=== PATIENT | female | born 1965 | race Caucasian/White ===

== ENCOUNTER 2018-04-19 10:28 | Observation (INO) | payer OTHER ==
--- OUTSIDE RECORDS SUMMARY | 2018-04-19 11:05 | XMS REPORT | Clinical Summary ---
:1965 Author Organization [facility] Address [address] [place] [address] Care Team Providers Name Role Phone Asked, No Pcp Primary Care Provider Unavailable Allergies Active Allergy Reactions Severity Noted Date Comments Latex Rash Low 02/04/2016 Current Medications Prescription Sig. Disp. Refills Start Date End Date Status esomeprazole (NexIUM) 40 Take 40 mg by Active MG capsule mouth. eszopiclone (LUNESTA) 3 mg Take by mouth. Active tablet montelukast (SINGULAIR) 10 01/24/2016 Active mg tablet mometasone (NASONEX) 50 11/27/2015 Active mcg/actuation nasal spray HEMATINIC PLUS 01/23/2016 Active VIT/MINERALS 106 mg iron- 1 mg tablet fluticasone (FLONASE) 50 01/24/2016 Active mcg/actuation nasal spray Active Problems Problem Noted Date Malignant neoplasm of vulva (HCC) 07/08/2013 Social History Tobacco Use Types Packs/Day Years Used Date Never Smoker Alcohol Use Drinks/Week oz/Week Comments No Sex Assigned at Date Recorded Not on file Last Filed Vital Signs Not on file Plan of Treatment Health Maintenance Due Date Last Done Comments CERVICAL CANCER SCREENING 1986 COLON CANCER SCREENING 11/15/2015 SHINGRIX VACCINE (#1) 11/15/2015 INFLUENZA VACCINE 02/03/2018 BREAST CANCER SCREENING 02/04/2018 02/05/2016 Results Not on fileafter 04/18/2017 Insurance Payer Benefit Plan / Group Subscriber ID Type Phone Address AETNA A[employer]NA HMO,POS,EPO, MC/EC xxxxxxxxxx HMO
[2018-04-19] MEDS ORDERED: ACETAMINOPHEN 500 MG TAB PO PRN (13:20)
[2018-04-19] MEDS ORDERED: ONDANSETRON 4 MG/2 ML VIAL IV PRN (13:20)
[2018-04-19] MEDS ORDERED: ACETAMINOPHEN 325 MG TABLET PRN (14:00)
--- NOTE | 2018-04-19 14:13 | RAD REPORT ---
EXAM DESCRIPTION: CT - Thorax W/ Con CLINICAL HISTORY: Chest pain nodule 3mm in chest - for evaluation COMPARISON: No comparisons FINDINGS: A well-circumscribed 5 mm nodule is seen in a juxtapleural location in the right lower lob e posteriorly (image 34/70). A punctate area of lucency seen within the nodule. Elsewhere, no suspici ous pulmonary nodule or mass is identified. No pleural thickening or pleural effusion. No pneumothora x. No axillary, mediastinal or hilar adenopathy. No concerning bony finding. No gross upper abdominal finding. All CT scans are performed using dose optimization technique as appropriate and may include automated exposure control or mA/KV adjustment according to patient size. IMPRESSION: Circumscribed 5 mm nodule is seen juxtapleural location right lower lobe posteriorly. Th is is likely a benign lesion, however follow-up CT chest is recommended in 6 months.
--- NOTE | 2018-04-19 15:08 | P.HP ---
Certification for Inpatient Patient admitted to: Observation With expected LOS: <2 Midnights Patient will require the following post-hospital care: None Practitioner: I am a practitioner with admitting privileges, knowledge of patient current condition, hospital course, and medical plan of care. 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 Patient stated that this morning when she was sitting on her makeup she started noticing that she was having cramping pain on her chest on the left-hand side. He was radiating down her arm and to the back. Patient also had associated nausea and shortness of breath with it. Patient decided to wait it out and see if her pain would subside however since the pain did not subside thus he decided to come to the ER for further workup. Patient has never had similar episodes in the past. After talking to patient's primary care doctor patient does have underlying anxiety and does generally appeared to be more anxious than usual. Currently patient is stating that she does not have any anxiety however his having a lot of work at school due to home coming. Patient denies having any fever chills and abdominal pain diarrhea constipation at this time In the ER patient had troponin x1 -. EKG was not negative for any abnormalty. Patient was admitted for ACS rule out at this time Allergies No Known Allergies Allergy (Verified 04/19/18 11:56) Home Medications: Esomeprazole Magnesium 1 tab PO DAILY 04/19/18 Eszopiclone 1.5 mg PO DAILY 04/19/18 Montelukast [Singulair*] 1 tab PO DAILY 04/19/18 - Past Medical/Surgical History Has patient received pneumonia vaccine in the past: No Diabetic: No -: sinusitis -: Shortness of breath -: salivary glands cancer -: salivary glands cancer removal in 2011 - Family History Sister -: Heart disease, Other (see notes) Notes: Rapid Heart rate Mother -: Hypertension Father -: Hypertension - Social History Smoking Status: Never smoker Alcohol use: Yes CD- Drugs: No Caffeine use: Yes Place of Residence: Home Review of Systems 10-point ROS is otherwise unremarkable Physical Examination - Physical Exam General: Alert, In no apparent distress HEENT: Atraumatic, PERRLA, Mucous membr. moist/pink, EOMI, Sclerae nonicteric Neck: Supple, 2+ carotid pulse no bruit, No LAD, Without JVD or thyroid abnormality Respiratory: Clear to auscultation bilaterally, Normal air movement Cardiovascular: Regular rate/rhythm, Normal S1 S2 Gastrointestinal: Normal bowel sounds, No tenderness Musculoskeletal: No tenderness Integumentary: No rashes Neurological: Normal gait, Normal speech, Normal strength at 5/5 x4 extr, Normal tone, Normal affect Lymphatics: No axilla or inguinal lymphadenopathy Assessment and Plan - Problems (Diagnosis) (1) Chest pain Current Visit: Yes Status: Acute Plan: Atypical chest pain. Troponin x1 negative. EKG negative for any acute abnormality -chest pain resolved now. Most likely secondary to anxiety -would trend troponin x2 here in the hospital. -echocardiogram pending at this time -ACS medication at this time -will Dc patient home echocardiogram negative for follow up with primary care provider and Cardiology on outpatient basis. Qualifiers: Chest pain type: unspecified Qualified Code(s): R07.9 - Chest pain, unspecified (2) Anxiety Current Visit: Yes Status: Chronic Plan: Patient symptoms most likely secondary to panic attack. Will have patient follow up with primary care provider for better control of her anxiety. (3) Lung nodule Current Visit: Yes Status: Acute Plan: Patient with 3 mm calcified nodule on x-ray. Will get a CT chest at this time to rule out any malignant abnormality. Discharge Plan: Home Plan to discharge in: 48 Hours - Advance Directives Does patient have a Living Will: No Does patient have a Durable POA for Healthcare: No - Code Status/Comfort Care Code Status Assessed: Yes Critical Care: No
--- NOTE | 2018-04-19 16:33 | ECHO ---
HEIGHT: ft in WEIGHT: lb oz DATE OF STUDY: 04/19/[address]: Sherry Otto MD 2-DIMENSIONAL: YES M.MODE: YES DOPPLER: YES COLOR FLOW: YES TDS: YES PORTABLE: DEFINITY: BUBBLE STUDY: DIAGNOSIS: CHEST PAIN CARDIAC HISTORY: CATHERIZATION: NO SURGERY: NO PROSTHETIC VALVE: NO PACEMAKER: NO MEASUREMENTS (cm) DIASTOLIC (NORMALS) SYSTOLIC (NORMALS) IVSd 0.9 (0.6-1.2) LA Diam 3.0 (1.9-4.0) LVEF 64% LVIDd 4.2 (3.5-5.7) LVIDs 2.8 (2.0-3.5) %FS 35% LVPWd 0.9 (0.6-1.2) Ao Diam 2.5 (2.0-3.7) 2 DIMENSIONAL ASSESSMENT: RIGHT ATRIUM: NORMAL LEFT ATRIUM: NORMAL RIGHT VENTRICLE: NORMAL LEFT VENTRICLE: NORMAL TRICUSPID VALVE: NORMAL MITRAL VALVE: NORMAL PULMONIC VALVE: NORMAL AORTIC VALVE: NORMAL PERICARDIAL EFFUSION: NONE AORTIC ROOT: NORMAL LEFT VENTRICULAR WALL MOTION: NORMAL DOPPLER/COLOR FLOW: TRACE MITRAL REGURGITATION. OTHERWISE NORMAL. COMMENTS: NORMAL TWO DIMENSIONAL ECHOCARDIOGRAM. TRACE MITRAL REGURGITATION. TECHNOLOGIST: LATOYA REBOLLAR
[2018-04-19] MEDS ORDERED: ESZOPICLONE 1 MG TAB PO SCH (21:00)
[2018-04-20] MEDS ORDERED: PANTOPRAZOLE 40MG TABLET PO SCH (06:30)
[2018-04-20] MEDS ORDERED: MONTELUKAST 10 MG TAB PO SCH (09:00)
[2018-04-20 14:36] VITALS: BP 118/69; TEMP 99.5; BMI 21.3
== END 2018-04-19 19:55 | disposition home or self-care (01) ==
LOC: 4TH 11:02
PROVIDERS: ADMIT Family Medicine; ATTEND Family Medicine
DX: R07.89 Other chest pain (principal); F41.9 Anxiety disorder, unspecified; R91.1 Solitary pulmonary nodule; Z85.89 Personal history of malignant neoplasm of other organs and systems
CPT/HCPCS: 36415; 71260; 82553; 93306; G0378; Q9967